=== PATIENT | female | born 1970 | race African-American/Black ===

== ENCOUNTER 2021-09-09 14:45 | Emergency (ER) | payer MEDICARE, MEDICAID ==
[~2021-09-09] VITALS: Ht 170.2 cm; Wt 146.0 kg
[2021-09-09] MEDS ORDERED: KETOROLAC 60MG/2ML VIAL IM ONE (15:30)
[2021-09-09 17:36] VITALS: BP 153/70
== END 2021-09-09 19:23 | disposition home or self-care (01) ==
LOC: ER 15:19
DX: M25.562 Pain in left knee (principal); I12.0 Hypertensive chronic kidney disease with stage 5 chronic kidney disease or end stage renal disease; E13.22 Other specified diabetes mellitus with diabetic chronic kidney disease; N18.6 End stage renal disease; Z99.2 Dependence on renal dialysis
CPT/HCPCS: 72170; 73564; 96372; 99284; J1885